=== PATIENT | male | born 1950 | race Caucasian/White ===

== ENCOUNTER 2025-08-05 08:20 | Day surgery (SDC) | payer MEDICARE, OTHER ==
[~2025-08-05] VITALS: Ht 177.8 cm; Wt 100.0 kg
[~2025-08-05 08:20] MED LIST: GABAPENTIN ER600 MG PO; IBLOOD GLUCOSE TEST STRIP 1 EA TEST VI PRN; LACTATED RINGER'S 1,000 ML IV SCH; LIDOCAINE HCL 1% 5 ML SDV INJ ONE; LIPITOR20 MG PO; MYSOLINE50 MG PO; PROPRANOLOL HCL40 MG PO; SPIRIVA18 MCG INH; TRAMADOL HCL50 MG PO; TRIAMCINOLONE A15 G1 TOP; VAZALORE81 MG PO; VENTOLIN HFA18 GM INH
[2025-08-05 08:51] VITALS: BP 124/72
[2025-08-05] MEDS ORDERED: LIDOCAINE HCL 2% 5 ML SDV ONE (10:24)
[2025-08-05] MEDS ORDERED: GLUCAGON,HUMAN RECOMBINANT 1 MG/ML VIAL ONE (10:24)
--- NOTE | 2025-08-05 11:12 | NUR ---
08/05/25 1112 Meg Stanton 1109-PATIENT ARRIVED TO PACU ON 6L MASK RR EVEN NONAROUSABLE LAYING LEFT LATERAL. ABDOMEN SOFT IVF INFUSING. SR HR 60'S.
[2025-08-05 11:43] VITALS: BP 136/82
--- NOTE | 2025-08-05 11:54 | OR ---
[facility] [address] [place], [place] [address] Signed DATE OF OPERATION: 08/05/2025 SURGEON: Chris Abdalla DO PREOPERATIVE DIAGNOSIS: Colon cancer screening. POSTOPERATIVE DIAGNOSES: 1. Colon cancer screening with colon polyp at 20 cm and colon polyps at 23 cm. 2. Diverticulosis. PROCEDURE PERFORMED: Colonoscopy with cold forceps biopsy of polyps at 20 and 23 cm. ANESTHESIA: IV sedation. ESTIMATED BLOOD LOSS: None. DRAINS: None. COMPLICATIONS: None. DESCRIPTION OF PROCEDURE: The patient was brought to the GI lab, placed in the supine position. After induction of IV sedation, the patient was placed in left lateral position and padded to satisfaction of anesthesia. The Olympus video colonoscope was then introduced into the rectum while insufflating and advancing under direct visualization. Scope was advanced to the rectosigmoid, sigmoid colon, descending colon, transverse colon, ascending colon and into the cecum. The colon was then insufflated and inspection of mucosal surface was carried out. No intrinsic or extrinsic masses were noted in the cecum or ascending colon. Scope was brought back through the transverse colon. No intrinsic or extrinsic masses were noted. The scope was then brought back past the splenic flexure to the descending colon. No intrinsic or extrinsic masses. No lesions or ulcerations were appreciated. The scope was brought back into the sigmoid colon. Scattered large diverticula were noted but no evidence of diverticulitis was noted. At approximately 23 cm, two separate flat polyps were noted. Utilizing cold forceps polypectomy was carried Electronically Signed By: CHRIS ABDALLA DO 08/05/25 1154 PATIENT NAME: SIERRA GALE OPERATIVE REPORT DATE OF : 52 REPORT #: [id number] PHYSICIAN: CHRIS ABDALLA DO PCP: OSVALDO WADE MD REPORT IS CONFIDENTIAL AND NOT TO BE RELEASED WITHOUT AUTHORIZATION [address] [address] Signed out x2, passed off the field for pathologic review. The scope was then withdrawn back to 20 cm, a flat polyp was noted. Again, cold forceps utilized to excise the polyp and it was passed off the field for pathologic review. Other than the diverticulosis, sigmoid colon was unremarkable. The rectosigmoid had some scattered diverticula but no evidence of diverticulosis. The scope was removed. The patient tolerated the procedure well and taken to recovery room in satisfactory condition. Chris Adballa DO RS/MODL /[id number] Copies: ~ Electronically Signed By: CHRIS ABDALLA DO 08/05/25 1154 PATIENT NAME: SIERRA GALE OPERATIVE REPORT DATE OF : 52 REPORT #: [id number] PHYSICIAN: CHRIS ABDALLA DO PCP: OSVALDO WADE MD REPORT IS CONFIDENTIAL AND NOT TO BE RELEASED WITHOUT AUTHORIZATION
--- NOTE | 2025-08-07 15:49 | PATH ---
[facility] [address] [place], [place] [address] Signed SPECIMEN(S): A COLON POLYP, 20 CM SPECIMEN(S): B COLON POLYP, 23 CM SPECIMEN SOURCE: A. COLON POLYP, 20 CM B. COLON POLYP, 23 CM CLINICAL HISTORY: Colon cancer screening/diverticulosis polyps A/B) polyp FINAL PATHOLOGIC DIAGNOSIS: A. Colon polyp at 20 cm: - Hyperplastic polyp. B. Colon polyp at 23 cm: - Hyperplastic polyp. JVR MICROSCOPIC EXAMINATION: Histologic sections of all submitted blocks are examined by light microscopy. These findings, together with the gross examination, support the pathologic diagnosis. GROSS DESCRIPTION: A. The specimen, labeled and designated "[place], colon polyp at 20 cm," is received in formalin and consists of one sarabia soft tissue fragment, 0.3 cm. Entirely submitted in (A1). B. The specimen, labeled and designated "[place], colon polyp at 23 cm," is received in formalin and consists of two sarabia soft tissue fragments, ranging from 0.2-0.3 cm. Entirely submitted in (B1). AB (under the direct supervision of a pathologist) The Gross Description was prepared using a voice recognition system. The report was reviewed for accuracy; however, sound-alike word errors, addition and/or deletions may occur. If there is any question about this report, please contact Client Services. ADDITIONAL NOTES: Immunohistochemical and/or in situ hybridization studies if performed in this case included appropriate positive controls that reacted as expected. This test was developed and its performance characteristics determined by [facility]. It has not been cleared or PATIENT NAME: SIERRA GALE PATHOLOGY DATE OF : 52 REPORT #: [id number] PHYSICIAN: LIZZIE PATHOLOGY PCP: OSVALDO WADE MD REPORT IS CONFIDENTIAL AND NOT TO BE RELEASED WITHOUT AUTHORIZATION [facility] [address] [place], [place] [address] Signed approved by the U.S. Food and Drug Administration. The FDA has determined that such clearance or approval is not necessary. This test is used for clinical purposes. It should not be regarded as investigational or for research. [facility] is certified under the Clinical Laboratory Improvement Amendments of 1988 (CLIA) as qualified to perform high complexity clinical laboratory testing. PERFORMING LABORATORY: Technical component was performed by [facility], [address] [place] [id number] (CLIA# [id number]). Professional interpretation was performed by [id number] [place] [facility] - [address] [place] [id number] (CLIA#: [id number]). Diagnostician: Edison Valdes MD Pathologist Electronically Signed 08/07/2025 Copies: ~ PATIENT NAME: SIERRA GALE PATHOLOGY DATE OF : 52 REPORT #: [id number] PHYSICIAN: LIZZIE PATHOLOGY PCP: OSVALDO WADE MD REPORT IS CONFIDENTIAL AND NOT TO BE RELEASED WITHOUT AUTHORIZATION
== END 2025-08-05 11:50 | disposition home or self-care (01) ==
LOC: DS 08:20 → OPS 08:20 → DS 10:30 → OPS 11:50
PROVIDERS: ATTEND Surgery
PROC: 0DBN8ZX Excision of Sigmoid Colon, Via Natural or Artificial Opening Endoscopic, Diagnostic (ICD-10-PCS; principal; 2025-08-05 10:20)
DX: Z12.11 Encounter for screening for malignant neoplasm of colon (principal); K63.5 Polyp of colon; K57.30 Diverticulosis of large intestine without perforation or abscess without bleeding; E78.00 Pure hypercholesterolemia, unspecified; G89.29 Other chronic pain; J44.9 Chronic obstructive pulmonary disease, unspecified; Z79.899 Other long term (current) drug therapy; Z91.010 Allergy to peanuts; Z91.018 Allergy to other foods
CPT/HCPCS: 00811; 88305; J1610; J2003; J2704